=== PATIENT | female | born 1985 | race Caucasian/White ===

== ENCOUNTER 2020-11-26 09:41 | Emergency (ER) | payer OTHER, SELFPAY | END 2020-11-26 11:35 | disposition home or self-care (01) | LOC: ERS 09:41 | DX: S92.351A Displaced fracture of fifth metatarsal bone, right foot, initial encounter for closed fracture (principal); W01.0XXA Fall on same level from slipping, tripping and stumbling without subsequent striking against object, initial encounter ==